=== PATIENT | male | born 1985 ===

== ENCOUNTER 2023-07-22 16:05 | Outpatient (REF) | payer BC, SELFPAY ==
[2023-07-22 16:31] LABS: ALT 29 U/L (16-63); AST 23 U/L (15-37); Albumin 4.6 g/dL (3.4-5.0); Alkaline Phosphatase 58 U/L (46-116); Anion Gap 8.7 mmol/L (3-11); BUN 13 mg/dL (7-18); Bilirubin, Total 0.5 mg/dL (0.2-1.0); CO2 28.3 mmol/L (21.0-32.0); Calcium 9.4 mg/dL (8.5-10.1); Calculated LDL 111 mg/dL (<100); Chloride 102 mmol/L (98-107); Cholesterol 195 mg/dL (<200); Estimated GFR 99.41 (mL/min/1.73m2); Glucose 97 mg/dL (74-106); HDL Cholesterol 64 mg/dL (40-60); Potassium 4.5 mmol/L (3.5-5.1); Sodium 139 mmol/L (136-145); Triglyceride 101 mg/dL (<150)
== END 2023-07-22 16:06 | disposition home or self-care (01) ==
LOC: NCHCN 16:05
PROVIDERS: Visit Provider Family Medicine
DX: Z00.00 Encounter for general adult medical examination without abnormal findings (principal); Z72.89 Other problems related to lifestyle
CPT/HCPCS: 80053; 80061

== ENCOUNTER 2024-07-12 15:13 | Outpatient (REF) | payer BC, SELFPAY ==
[2024-07-12 21:36] LABS: Bilirubin Negative (Negative); Blood Negative (Negative); Clarity Turbid (Clear); Glucose Negative (Negative); Ketones Negative (Negative); Leukocyte Esterase Negative (Negative); Nitrite Negative (Negative); Specific Gravity 1.025 (1.005-1.025); Urobilinogen 0.2 mg/dL (Up to 0.2); pH 6.5 (5-8)
[2024-07-13 18:34] LABS: HIV-1/2 Ag & Ab Screen Negative (Negative)
[2024-07-13 18:42] LABS: Hepatitis A Antibody IgM Negative (Negative); Hepatitis B Core Antibody Negative (Negative); Hepatitis B surface Ag Negative (Negative); Hepatitis C Ab w Rflx HCV PCR Negative (Negative)
[2024-07-16 11:17] LABS: HSV Type 1 Ab, IgG Negative (Negative); HSV Type 2 Ab, IgG Negative (Negative)
[2024-07-16 11:30] LABS: Syphilis Serology (RPR) Negative (Negative)
[2024-07-16 12:31] LABS: Chlamydia Result Positive (Negative); GC Result Negative (Negative)
== END 2024-07-12 15:14 | disposition home or self-care (01) ==
LOC: LBN 15:13
PROVIDERS: Visit Provider Physician Assistant
DX: R21 Rash and other nonspecific skin eruption (principal); R39.9 Unspecified symptoms and signs involving the genitourinary system
CPT/HCPCS: 86704; 86709; 86803; 87340; 87389; 87491; 87591; 81003; 86592; 86695; 86696